=== PATIENT | female | born 1955 | race Two or more races ===

== ENCOUNTER 2018-01-29 10:15 | Outpatient (CLI) | payer OTHER | END 2018-01-29 10:29 | disposition home or self-care (01) | LOC: MAMO-SONO 10:15 | DX: Z12.31 Encounter for screening mammogram for malignant neoplasm of breast (principal) ==

== ENCOUNTER 2018-05-21 09:19 | Outpatient (CLI) | payer OTHER | END 2018-05-21 09:44 | disposition home or self-care (01) | LOC: SONOGRAMA 09:19 | DX: M65.811 Other synovitis and tenosynovitis, right shoulder (principal) ==

== ENCOUNTER 2019-02-18 09:51 | Outpatient (CLI) | payer OTHER | END 2019-02-18 09:54 | disposition home or self-care (01) | LOC: MAMO-SONO 09:51 | DX: N61.1 Abscess of the breast and nipple (principal); Z12.31 Encounter for screening mammogram for malignant neoplasm of breast ==

== ENCOUNTER → 2019-10-25 | Outpatient (CLI) | payer OTHER | END | disposition home or self-care (01) | LOC: MRI 14:45 | DX: M51.36 Other intervertebral disc degeneration, lumbar region (principal) | CPT/HCPCS: 72148 ==

== ENCOUNTER 2021-02-07 11:04 | Outpatient (CLI) | payer OTHER | END 2021-02-07 11:12 | disposition home or self-care (01) | LOC: MAMO-SONO 11:04 | PROVIDERS: ATTEND Specialist | DX: Z12.31 Encounter for screening mammogram for malignant neoplasm of breast (principal); Z87.898 Personal history of other specified conditions; N61.1 Abscess of the breast and nipple ==

== ENCOUNTER → 2021-03-14 | Outpatient (CLI) | payer OTHER | END | disposition home or self-care (01) | LOC: MRI 11:15 | PROVIDERS: ATTEND Specialist | DX: M48.07 Spinal stenosis, lumbosacral region (principal); G95.20 Unspecified cord compression; M47.16 Other spondylosis with myelopathy, lumbar region | CPT/HCPCS: 72148 ==

== ENCOUNTER 2021-05-07 09:59 | Outpatient (CLI) | payer OTHER | END 2021-05-07 10:04 | disposition home or self-care (01) | LOC: RAD 09:59 | PROVIDERS: ATTEND Neurological Surgery | DX: R07.89 Other chest pain (principal); D68.8 Other specified coagulation defects; J18.8 Other pneumonia, unspecified organism; Z03.818 Encounter for observation for suspected exposure to other biological agents ruled out; R05 Cough ==

== ENCOUNTER 2022-07-17 13:34 | Outpatient (CLI) | payer OTHER | END 2022-07-17 13:39 | disposition home or self-care (01) | LOC: MAMO-SONO 13:34 | DX: N63.0 Unspecified lump in unspecified breast (principal); N63.20 Unspecified lump in the left breast, unspecified quadrant; N63.10 Unspecified lump in the right breast, unspecified quadrant ==

== ENCOUNTER 2023-08-13 11:36 | Outpatient (CLI) | payer OTHER | END 2023-08-13 11:42 | disposition home or self-care (01) | LOC: MAMO-SONO 11:36 | PROVIDERS: ATTEND Specialist | DX: Z12.31 Encounter for screening mammogram for malignant neoplasm of breast (principal); N63.0 Unspecified lump in unspecified breast ==

== ENCOUNTER 2024-08-25 12:47 | Outpatient (CLI) | payer OTHER | END 2024-08-25 12:54 | disposition home or self-care (01) | LOC: MAMO-SONO 12:47 | PROVIDERS: ATTEND Specialist | DX: N63.0 Unspecified lump in unspecified breast (principal); Z12.31 Encounter for screening mammogram for malignant neoplasm of breast ==

== ENCOUNTER 2025-09-14 09:41 | Outpatient (CLI) | payer OTHER | END 2025-09-14 09:45 | disposition home or self-care (01) | LOC: MAMO-SONO 09:41 | PROVIDERS: ATTEND Specialist | DX: N63.0 Unspecified lump in unspecified breast (principal); Z12.31 Encounter for screening mammogram for malignant neoplasm of breast ==

== ENCOUNTER 2025-09-21 10:17 | Outpatient (CLI) | payer OTHER | END 2025-09-21 10:23 | disposition home or self-care (01) | LOC: MRI 10:17 | PROVIDERS: ATTEND Specialist | DX: D25.9 Leiomyoma of uterus, unspecified (principal); D30.3 Benign neoplasm of bladder; N32.9 Bladder disorder, unspecified | CPT/HCPCS: 72195 ==